=== PATIENT | female | born 1970 | race Caucasian/White ===

== ENCOUNTER 2016-06-11 20:31 | Emergency (ER) ==
--- NOTE | 2016-06-11 22:51 | PROVIDER DOCUMENTATION ---
HPI-EENT General - General Source: patient - History of Present Illness-EENT General EENT Location: reports: throat, facial Quality of Pain: reports: pressure Severity: reports: severe Onset/Duration: reports: this morning (sinus pressure began), other (month) Timing: reports: still present Prearrival Treatment: Initiated over the counter meds Associated Symptoms: reports: facial pain/swelling, nasal congestion/drainage, sore throat Locality of Occurance: Home Similar Symptoms Previously?: Yes Recently seen or treated by another doctor?: No <Mami Santacruz - Last Filed: 06/12/16 00:06> <Mau Love - Last Filed: 06/12/16 00:11> - General Chief Complaint: Sinus Pain Stated Complaint: COUGH,VOMITING Time Seen by Provider: 06/11/16 22:48 Allergies/Adverse Reactions: Patient Allergies Allergy/AdvReac Type Severity Reaction Status Date / Time Penicillins Allergy Intermediate SWELLING Verified 06/11/16 22:05 Home Medications: Home Medication List Medication Instructions Recorded Confirmed Last Taken Type Guaifenesin/Codeine [Robitussin-AC] 10 ml PO Q4H PRN PRN #8 oz 06/12/16 Unknown Rx Levofloxacin [Levaquin] 500 mg PO DAILY #9 tablet 06/12/16 Unknown Rx - History of Present Illness-EENT General Nature of Presenting Problem: 45 Y/O F presents to ED with EENT. Pt states that she's had sinus pain and throat pain, took OTC meds and allergy meds with no sinus relief. States she had a cold for about a month but sinus began this morning. States V/D today V(5x ). (Mami Santacruz) Review of Systems - Adult - REVIEW OF SYSTEMS - ADULT Constitutional: denies: chills, fever Eyes: reports: no symptoms reported Ears, Nose, Mouth & Throat: reports: sinus problem Cardiovascular: reports: no symptoms reported Respiratory: reports: cough Gastrointestinal: reports: diarrhea, vomiting Genitourinary: reports: no symptoms reported Musculoskeletal: reports: no symptoms reported Integumentary: reports: no symptoms reported Neurological: reports: no symptoms reported Psychiatric: reports: no symptoms reported Endocrine: reports: no symptoms reported Hematologic/Lymphatic: reports: no symptoms reported Allergic/Immunologic: reports: no symptoms reported All Other Systems: Reviewed and Negative <Mami Santacruz - Last Filed: 06/12/16 00:06> Past History - Adult - PAST MEDICAL HISTORY-ADULT Review of Records: reports: Old Records Reviewed, Nursing Assessment Review, Medications Reviewed, Social history reviewed & non-contributory. Major Childhood Illnesses: reports: denies history Cardiovascular: reports: denies history Respiratory: reports: denies history Gastrointestinal: reports: denies history Genitourinary: reports: other (heavy and prolong menses) Psychiatric: reports: denies history Endocrine/Immune: reports: denies history Other Conditions: reports: denies history - PRIOR SURGERIES/PROCEDURES Surgical/Procedure History: reports: reviewed, not pertinent - PRIOR HOSPITALIZATIONS Prior Hospitalizations: reports: for other non-related - IMMUNIZATION STATUS Childhood Immunizations: See Nurse Assessment Flu Vaccine: See Nurse Assessment - FAMILY HISTORY Family History: reviewed, not pertinent - SOCIAL HISTORY Smoking: cigarettes, less than 1 pack/day Substance Use: none/never Alcohol Use Frequency: never Living Situation: family <Mami Santacruz Filed: 06/12/16 00:06> Physical Exam- EENT - Physical Exam EENT Initial Vital Signs Reviewed: Yes General Appearance: appears well, alert, no apparent distress Eye Exam: bilateral eye: normal inspection, PERRL, EOMI Ear Exam: bilateral ear: auricle normal, canal normal, TM normal Nasal Exam: normal inspection Throat Exam: normal mouth inspection, pharynx normal Neck: non-tender, full range of motion, supple, normal inspection Respiratory: chest non-tender, lungs clear, normal breath sounds Cardiovascular: normal peripheral pulses, regular rate, rhythm Abdominal Exam: normal bowel sounds, non tender, soft Lymphatic: no adenopathy Back Exam: normal inspection, no CVA tenderness, no vertebral tenderness Extremity: normal range of motion, non-tender Integumentary: normal color, normal turgor 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 II-XII nml as tested Psych/Mental Status: normal mood/affect, normal thought content, normal thought process, oriented x 3 <NeetaMami Malave Filed: 06/12/16 00:06> Progress - XRAY 1 XRAY Study: Chest Impression: Normal XRAY Interpretation: NAD 2 XRAY Study: other (SINUS) Impression: Normal XRAY Interpretation: NAD <NeetaMami Filed: 06/12/16 00:06> <Mau Love - Last Filed: 06/12/16 00:11> - PLAN OF CARE/RESULTS Progress/Plan/Lab Results: Laboratory Tests 06/11/16 06/11/16 23:05 23:05 WBC 6.56 RBC 4.14 L Hgb 11.7 L Hct 35.2 L MCV 85.0 MCH 28.3 MCHC 33.2 RDW Std Deviation 17.4 H Plt Count 282 MPV 11.4 H Immature Gran % (Auto) 0.2 Neut % (Auto) 61.7 Lymph % (Auto) 25.0 [place] % (Auto) 10.8 H Eos % (Auto) 2.0 Baso % (Auto) 0.3 Immature Gran # (Auto) 0.01 Neut # (Auto) 4.05 Lymph # (Auto) 1.64 [place] # (Auto) 0.71 H Eos # (Auto) 0.13 Baso # (Auto) 0.02 Sodium 136 Potassium 3.9 Chloride 103 Carbon Dioxide 26 Anion Gap 7 BUN 15 Creatinine 0.6 Estimated GFR/1.73 m2 > 60 BUN/Creatinine Ratio 25 Glucose 101 Calculated Osmolality 273 Calcium 9.3 Total Bilirubin < 0.15 L AST 14 ALT 11 Alkaline Phosphatase 75 Total Protein 6.4 Albumin 3.9 Globulin 3.0 Albumin/Globulin Ratio 2.0 Orders Category Date Time Status CHEST-2 VIEWS [RAD] Stat Exams 06/11/16 22:52 Taken SINUSES TANNER VIEW ONLY [RAD] Stat Exams 06/11/16 22:52 Taken CBC WITH DIFF [HEME] Stat Lab 06/11/16 23:05 Completed COMPREHENSIVE METABOLIC PANEL [CHEM] Stat Lab 06/11/16 23:05 Completed Vital Signs - 24 hr 06/11/16 06/11/16 20:42 22:36 Temperature 98 F Pulse Rate 78 81 Respiratory 18 20 Rate Blood Pressure 132/78 122/78 O2 Sat by Pulse 99 97 Oximetry (Mami Santacruz) Departure - Departure Time of Disposition Order: 00:07 Certified Medical Emergency: Emergent <Mami Santacruz - Last Filed: 06/12/16 00:06> - Departure Time of Disposition Order: 00:10 Certified Medical Emergency: Emergent <Mau Love - Last Filed: 06/12/16 00:11> - Departure DIAGNOSIS: URI (upper respiratory infection) Qualifiers: URI type: unspecified URI Qualified Code(s): J06.9 - Acute upper respiratory infection, unspecified Disposition: HOME 01 Condition: Stable Additional Instructions: ED Follow Up Instructions: You have been treated by a care provider in the Emergency Department. These instructions are being provided to you so you can have an understanding of how to care for yourself upon discharge. Upon discharge from the Emergency Department, you are responsible for making arrangements for follow-up care by a physician of your choice. Take all prescribed medications as directed. Return to the Emergency Department immediately for any new or worsening symptoms. You may call the Physician Referral phone number at [phone] to obtain a list of Physicians who are taking new patients. Prescriptions: Guaifenesin/Codeine [Robitussin-AC] 10 ml PO Q4H PRN PRN #8 oz PRN Reason: Cough Levofloxacin [Levaquin] 500 mg PO DAILY #9 tablet Referrals: None,PCP [Primary Care Provider] - Attestation - Scribe Verification/Attestation Scribe:: Mami Santacruz Acting as Scribe for:: Mau Love Scribe documention review:: This chart was documented by a scribe and accurately reflects the service the provider performed and the decisions made by the provider. <Mami Santacruz - Last Filed: 06/12/16 00:06> Physician Attestation
[2016-06-11 23:12] LABS: MANUAL DIFF NEEDED? NO
[2016-06-11 23:21] LABS: BASO% 0.3 % (0.0-0.8); EOS# 0.13 X1000 (0.0-0.7); HEMATOCRIT 35.2 % (37.0-47.0); HEMOGLOBIN 11.7 g/dL (12.0-16.0); IMM GRAN# 0.01 X1000 (0.0-0.04); IMM GRAN% 0.2 % (0.0-0.5); LYMPH# 1.64 X1000 (1.2-3.4); MCH 28.3 PG (27-31); MCHC 33.2 g/dL (33-37); MONO# 0.71 X1000 (0.11-0.59); MONO% 10.8 % (1.7-9.3); MPV 11.4 FL (7.4-10.4); NEUT% 61.7 % (42.2-75.2); PLT 282 X1000 (130-400); RBC 4.14 XMIL (4.2-5.4)
[2016-06-12 00:04] LABS: AGAP 7; ALBUMIN 3.9 g/dL (3.5-5.0); ALKALINE PHOSPHATASE 75 U/L (32-104); BUN 15 mg/dL (8-22); CALCIUM 9.3 mg/dL (8.8-10.2); CHLORIDE 103 mmol/L (98-107); COSMO 273; GOT 14 U/L (10-30); GPT 11 U/L (10-36); POTASSIUM 3.9 mmol/L (3.5-5.1); SODIUM 136 mmol/L (136-145); TCO2 26 mmol/L (25-35); TOTAL BILIRUBIN < 0.15 mg/dL (0.20-1.00); TOTAL PROTEIN 6.4 g/dL (6.3-8.3)
[2016-06-12] MEDS ORDERED: DEPO-MEDROL IM ONE (00:07)
[2016-06-12] MEDS ORDERED: LEVAQUIN PO ONE (00:08)
[2016-06-12 00:31] VITALS: BP 117/79
--- NOTE | 2016-06-12 08:13 | Diag Imaging Result Document ---
PROCEDURE NAME: SINUSES TANNER VIEW ONLY - 06/11/2016 TANNER' VIEW OF THE SINUSES: FINDINGS: No sinus opacification. No air fluid levels. No mucosal thickening. IMPRESSION: No sinusitis.
--- NOTE | 2016-06-12 08:15 | Diag Imaging Result Document ---
PROCEDURE NAME: CHEST-2 VIEWS - 06/11/2016 FRONTAL AND LATERAL CHEST, TWO VIEWS: COMPARISON: Compared to 04/21/2014. FINDINGS: The lungs are well expanded. The heart is not enlarged. The vessels are not distended. No pleural effusions. There are no infiltrates. IMPRESSION: No pneumonia.
== END 2016-06-12 00:40 | disposition home or self-care (01) ==
LOC: P.ED 20:31
DX: J06.9 Acute upper respiratory infection, unspecified (principal); R05 Cough; R09.81 Nasal congestion; J02.9 Acute pharyngitis, unspecified; R11.10 Vomiting, unspecified; J34.89 Other specified disorders of nose and nasal sinuses; R19.7 Diarrhea, unspecified; F17.210 Nicotine dependence, cigarettes, uncomplicated; Z71.6 Tobacco abuse counseling
CPT/HCPCS: 70210; 71020; 80053; 85025; J1030